=== PATIENT | female | born 1940 | race Caucasian/White ===

== ENCOUNTER 2017-08-23 16:35 | Inpatient (IN) | payer MEDICARE, BC ==
[2017-08-23] MEDS ORDERED: Morphine 10 MG/ML Syringe IM ONE (17:59)
[2017-08-23] MEDS ORDERED: Morphine 10 MG/ML SDV ONE (18:05)
[2017-08-23] MEDS ORDERED: methylPREDNISolone Sodium Succinate 125 MG/2 ML SDV IVPUSH ONE (18:34)
[2017-08-23] MEDS ORDERED: methylPREDNISolone Sodium Succinate 125 MG/2 ML SDV ONE (18:51)
[2017-08-23] MEDS ORDERED: Ketorolac 30 MG/ML SDV IVPUSH ONE (19:17)
[2017-08-23] MEDS ORDERED: Ketorolac 30 MG/ML SDV ONE (19:26)
[2017-08-23] MEDS ORDERED: HYDROmorphone 2 MG/ML Syringe IVPUSH PRN (21:49)
[2017-08-23] MEDS ORDERED: Sodium Chloride 0.9% 100 ML IV SCH (22:00)
--- NOTE | 2017-08-24 01:30 | ER ---
HPI: A 77-year-old female who comes in with family members with complaints of bilateral hip pain that wraps around the back of her pelvic area. She states that her sacroiliac area is painful and the pain is extreme. She rates her pain at 9/10 when she first got here. She also complains of some hand pain bilaterally and both lower legs and feet are painful. The patient states that this all started this afternoon. She has had some chronic aches and pains, but this is something different. She has not had any falls or injuries. The patient has not taken any pain medications. PAST MEDICAL HISTORY: Includes atrial fibrillation diagnosed one month ago. She is on Coumadin for this. The patient has been scheduled to see a yield improvement engineer multiple times, but the appointment had to be canceled for one reason or another. She has history of a PE, history of stage III renal disease, was thought to be med related. OBJECTIVE: GENERAL APPEARANCE: The patient is awake. She is in obvious discomfort, moaning and groaning from pain. VITAL SIGNS: Reviewed. Initial blood pressure 108/63, temp of 100, pulse 90, O2 sats are 95% on room air. Physical exam, lungs are clear. CARDIAC: Heart sounds distinct. I do not notice any murmur. She does have an irregular heart rate that is consistent with atrial fibrillation. ABDOMEN: Soft, protuberant, nontender to palpation. The patient has definite tenderness with guarding with palpation of the right lateral hip and to a lesser degree the left lateral side of the hip radiating around the posterior aspect of the pelvis. The skin is intact without any redness or discoloration. The patient also has I would say mild pain with palpation of the dorsal aspect of both hands. The hands are normal in appearance with full and unguarded flexion and extension capability. Examining the patient's lower legs reveals 2+ edema bilaterally. Both lower legs and feet are tender with palpation. She tells me this is not new. LABORATORY DATA: Labs today include a CBC showing a white count of 12.9. PT/INR obtained. The INR is 2.7. D-dimer is 219. Comprehensive metabolic panel shows a BUN of 47, GFR is 37, creatinine 1.3. C-reactive protein is elevated at 8.5 and sedimentation rate is also elevated at 40. INITIAL TREATMENT PLAN: The patient was given 5 mg of morphine IM. This did not seem to change her pain at all. We then started an IV and after the labs were reviewed, I gave her Solu-Medrol 125 mg IV. This took the edge off her pain, but she still stated that she was having a lot of pain rating her pain at 7/10. I then gave Toradol 30 mg IV. We monitored the patient for another 30 minutes or so and her pain continued to slowly improve. She still was moaning and groaning and stating that with any movement, her pain is severe. At this point, a CT of the pelvis which involved both hips was obtained. The radiologist report shows significant osteoarthritis of the right hip moderate to severe on the right and mild on the left. Multiple degenerative changes involving the lower lumbar spine. No acute fractures or soft tissue mass. DIAGNOSIS: Pelvic pain, acute in onset. TREATMENT PLAN: At this point, the patient's pain is mild. She states that she does not feel she can go home. She would have a hard time getting out of bed. She has been spending most of her last month in a recliner chair since she has been diagnosed with atrial fibrillation. We will admit the patient for observation and pain control overnight and differential diagnosis includes polymyalgia rheumatica. The patient will be re-evaluated in the morning. CALDERON/MODL /[id number]
--- NOTE | 2017-08-24 02:15 | ADMIT ---
HPI: She is being admitted for acute pelvic pain for pain control and weakness, partially due to recently declining health and morbid obesity. The patient was admitted through the emergency room where I initially evaluated her. Lab work showed an elevated sedimentation rate and the CRP. The other lab results were mostly unremarkable. TREATMENT AND PLAN: The patient was given morphine 5 mg IM initially in the ER. She was given Solu-Medrol 125 mg IV and lastly Toradol 30 mg IV. After monitoring her for a while, her pain did significantly decrease to the point where she was comfortable. The patient does not feel she can even attempt to get up to a standing position. She has been using a walker at home, but does not feel she is capable of any independent activity at this time. The differential diagnosis does include polymyalgia rheumatica. CT of the patient's pelvic area did show moderate to severe osteoarthritis on the right and mild on the left, multiple degenerative disk disease in the lower lumbar spine, negative for fracture or acute bony abnormality. The patient's family is concerned about her being able to even come back home. They feel that an evaluation is needed to see if she needs to go to some form of assisted living environment. This has already been initially discussed between family members. I will put in orders for some IV fluids and pain control measures and will repeat some of the basic labs in the morning. CALDERON/MODJustino /[id number]
[2017-08-24] MEDS ORDERED: Non-Formulary Medication 1 Each (Levothyroxine [Levothyroxine] 175 MCG) PO SCH (07:00)
[2017-08-24] MEDS ORDERED: HYDROmorphone 2 MG/ML SDV IVPUSH PRN ×2 (07:55→10:55)
[2017-08-24] MEDS ORDERED: WARFARIN SODIUM 2 MG PO SCH ×2 (08:00→18:00)
[2017-08-24] MEDS ORDERED: SPIRONOLACTONE 12.5 MG PO SCH (08:00)
[2017-08-24] MEDS ORDERED: Non-Formulary Medication 1 Each (Spironolactone [Aldactone] 25 MG) PO SCH (08:00)
[2017-08-24] MEDS ORDERED: Non-Formulary Medication 1 Each (Furosemide [Furosemide] 20 MG) PO SCH ×2 (08:00→14:00)
[2017-08-24] MEDS ORDERED: Non-Formulary Medication 1 Each (Furosemide [Furosemide] 40 MG) PO SCH (08:00)
[2017-08-24] MEDS ORDERED: Non-Formulary Medication 1 Each (Potassium Chloride [Klor-Con 10] 10 MEQ) PO SCH ×2 (08:00)
[2017-08-24] MEDS ORDERED: Non-Formulary Medication 1 Each (Lisinopril [Lisinopril] 5 MG) PO SCH (08:00)
[2017-08-24] MEDS ORDERED: WARFARIN SODIUM 3 MG PO SCH (08:00)
[2017-08-24] MEDS ORDERED: Non-Formulary Medication 1 Each (Diltiazem Hcl [Dilt-Xr] 120 MG) PO SCH ×2 (08:00)
--- NOTE | 2017-08-24 08:34 | CT ---
DATE OF SERVICE: 08/23/17 CLINICAL DATA: Acute pelvic pain. No injury. PELVIC CT: Multislice acquisition without IV contrast was performed. No acute fracture or dislocation. No focal lytic or blastic bone lesions. There are severe osteoarthritic changes of the right hip joint. There are moderate osteoarthritic changes of the left hip joint. There is degenerative disc disease at multiple levels in the lower lumbar spine. There are degenerative changes involving the SI joints and symphysis pubis. The bladder is partially fluid-filled and appears normal. There is a calcified nodule within the uterus consistent with a calcified uterine leiomyoma. No other significant findings. [id number] [facility]
--- NOTE | 2017-08-24 16:55 | DISCH ---
This 77-year-old lady was admitted through the emergency room last night with pelvic pain, bilateral hip pain, and some pain radiating down towards both feet. She also had initially some complaints of bilateral hand pain. Lab workup revealed both an elevated sedimentation rate and CRP. Other test results were basically normal. My initial working diagnosis was polymyalgia rheumatica. The patient was given Solu-Medrol followed by Toradol. She also received morphine initially 5 mg IM. This combination of medication produced good pain relief after about 2 hours at a time passed while monitoring the patient. She slept well during the night. She has been doing much better today. Her pain is between 0 and 1. The patient's appetite has been good. She is teary today. Therefore, I do feel that the polymyalgia rheumatica is the correct diagnosis. At this point, we will discharge the patient. I will start her on prednisone 40 mg a day for 5 days. I do want the patient to follow up with her primary care provider, which she tells me is Dr. Heard. I want her to be seen by early next week for recheck. We also had some discussion involving PT and OT. Physical therapist did evaluate the patient and stated that she was doing very well from both the PT and OT standpoint. CALDERON/MODL /[id number]
[2017-08-24] MEDS ORDERED: CRESTOR 10MG TABLET PO SCH (20:00)
--- NOTE | 2017-08-24 21:40 | HP ---
Admitted for pelvic and hip pain that she came into the emergency room for last evening. The patient's pain was controlled in the emergency room after given 5 mg of morphine IM followed by Solu-Medrol 125 mg IV and Toradol 30 mg IV. Lab workup revealed an elevated sed rate and CRP. The remaining labs were unremarkable. Initial thoughts are polymyalgia rheumatica. PAST MEDICAL HISTORY: 1. Atrial fibrillation, fairly recently diagnosed. 2. History of pulmonary embolism. 3. History of stage III renal disease. 4. Obesity. 5. Hypothyroidism. 6. 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 CURRENT MEDICATIONS: Please refer to the appropriate section of [place]. OBJECTIVE: GENERAL APPEARANCE: Seeing the patient on the morning of August 24, 2017, reveals that she is feeling much better. Her pain is minimal. She rates it at 0 to 1. The patient is very talkative today. She states that she slept well during the night once her pain became controlled. VITAL SIGNS: Reviewed. LUNGS: Clear. CARDIAC: Heart sounds distinct without murmurs. ABDOMEN: Soft and nontender to palpation. Bowel sounds are present. EXTREMITIES: The patient is no longer having any pain involving the left or right hip area or radiating around to the posterior pelvic girdle. ASSESSMENT AND PLAN: PT has evaluated the patient and states she is doing well. She is able to walk 30 feet. Her appetite is good today. At this point, she will be discharged home. I will put her on prednisone for a few days and I do want the patient to follow up with her primary care provider next week, which she tells me is Dr. Heard. CRS/MODL
[2017-08-25] MEDS ORDERED: WARFARIN SODIUM 3 MG PO SCH (18:00)
== END 2017-08-24 12:30 | disposition home or self-care (01) | DRG 546 ==
LOC: LB.ED 16:35 → LB.MS 21:45 → OBSVTOIN 21:46
PROVIDERS: ADMIT Physician Assistant; ATTEND Physician Assistant
DX: M35.3 Polymyalgia rheumatica (principal); Z68.43 Body mass index [BMI] 50.0-59.9, adult; G89.29 Other chronic pain; I48.91 Unspecified atrial fibrillation; Z79.01 Long term (current) use of anticoagulants; M25.552 Pain in left hip; M25.551 Pain in right hip; M79.642 Pain in left hand; M79.641 Pain in right hand; M79.605 Pain in left leg; R10.2 Pelvic and perineal pain; M79.604 Pain in right leg; M79.672 Pain in left foot; M79.671 Pain in right foot; N28.9 Disorder of kidney and ureter, unspecified; Z86.711 Personal history of pulmonary embolism; M47.816 Spondylosis without myelopathy or radiculopathy, lumbar region; E66.01 Morbid (severe) obesity due to excess calories; R53.1 Weakness; E03.9 Hypothyroidism, unspecified; M15.9 Polyosteoarthritis, unspecified; Z96.653 Presence of artificial knee joint, bilateral; Z96.619 Presence of unspecified artificial shoulder joint
CPT/HCPCS: 36415; 72192; 80053; 85025; 85379; 85610; 85651; 86140; 93005; A0425; A0429; J1885; J2270; J2930; 83735; 96372; 96374; 96375; 97161-GP; 99284-25; A9270-GY; J7030

== ENCOUNTER → 2019-01-22 | Outpatient (CLI) | payer MEDICARE, OTHER | LOC: LB.LAB 12:48 | PROVIDERS: ATTEND Family Medicine | DX: I48.20 Chronic atrial fibrillation, unspecified (principal) | CPT/HCPCS: 85610 ==

== ENCOUNTER 2020-08-25 08:36 | Emergency (ER) | payer MEDICARE, OTHER ==
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
== END 2020-08-25 09:50 | disposition home or self-care (01) ==
LOC: LB.ED 08:36
DX: R04.0 Epistaxis (principal); I48.91 Unspecified atrial fibrillation; M19.90 Unspecified osteoarthritis, unspecified site; E66.9 Obesity, unspecified; Z86.711 Personal history of pulmonary embolism; Z79.01 Long term (current) use of anticoagulants; Z79.899 Other long term (current) drug therapy
CPT/HCPCS: 30903; 99283-25

== ENCOUNTER 2021-01-12 10:14 | Observation (INO) | payer MEDICARE, OTHER ==
[2021-01-12] MEDS ORDERED: Sodium Chloride 0.9% 10 ML Syringe FLUSH PRN (10:50)
[2021-01-12] MEDS ORDERED: Diltiazem 25 MG/5 ML SDV IVPUSH ONE (10:50)
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
[2021-01-12] MEDS ORDERED: LORazepam 2 MG/ML SDV IV PRN (14:46)
[2021-01-12] MEDS: Acetaminophen 325 MG Tab PO PRN (17:02)
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
[2021-01-13] MEDS: Acetaminophen 650 MG Tab.ER PO PRN ×2 (04:15→18:21)
[2021-01-13] MEDS: Furosemide 20 MG Tab PO SCH (07:48)
[2021-01-13] MEDS: Spironolactone 25 MG Tab PO SCH (07:48)
[2021-01-13] MEDS: Diltiazem 120 MG Cap.CD PO SCH (07:48)
[2021-01-13] MEDS: Potassium Chloride 10 MEQ Tab.ER PO SCH (07:48)
[2021-01-13] MEDS: Lisinopril 5 MG Tab PO SCH (07:48)
[2021-01-13] MEDS ORDERED: DILTIAZEM HCL 120 MG PO SCH (08:00)
[2021-01-13] MEDS ORDERED: Non-Formulary Medication 1 Each (Rosuvastatin [Crestor] 10 MG Tablet) PO SCH (08:00)
[2021-01-13] MEDS ORDERED: Rosuvastatin 20 MG Tab PO SCH ×2 (08:00→20:00)
[2021-01-13] MEDS ORDERED: Phytonadione 10 MG in Sodium Chloride 0.9% 50 ML IV SCH (11:21)
[2021-01-13] MEDS: Cephalexin 500 MG Cap PO SCH ×2 (17:02→23:24)
[2021-01-13] MEDS ORDERED: Menthol/Methyl Salicylate 85 GM Tube TOP PRN (19:46)
[2021-01-14] MEDS: Acetaminophen 325 MG Tab PO PRN (01:59)
[2021-01-14] MEDS: Cephalexin 500 MG Cap PO SCH ×2 (05:11→12:23)
[2021-01-14] MEDS: Spironolactone 25 MG Tab PO SCH (07:33)
[2021-01-14] MEDS: Furosemide 20 MG Tab PO SCH (07:33)
[2021-01-14] MEDS: Potassium Chloride 10 MEQ Tab.ER PO SCH ×2 (07:35→08:42)
[2021-01-14] MEDS: Lisinopril 5 MG Tab PO SCH (08:42)
[2021-01-14] MEDS: Diltiazem 120 MG Cap.CD PO SCH (08:42)
--- NOTE | 2021-01-14 15:06 | PCM.DCSUM1 ---
Discharge Summary - Hospital Course HPI Initial Comments: This patient was admitted inpatient unit on observation status for anemia. She presented to the ER with a complaint of weakness and was found to have a hemoglobin less than 7. She also had an elevated INR. She was transfused with 4 units of packed cells which brought her hemoglobin up to a 7.6. Just prior to remove discharge she did have one very dark stool prior and it is likely she has a GI bleed. She states she has never had a colonoscopy. Diagnosis: Stroke: No Modified [place] Scale: Mod.Sev.Disability ;Unable to Walk/Attend Bodily Needs W/O Assistance Modified [place] Scale Score: 4 - Discharge Data Discharge Date: 01/14/21 Discharge Disposition: Home, Self-Care 01 Condition: Good - Referral to Home Health Primary Care Physician: Masha Heard MD - Discharge Diagnosis/Problem(s) (1) Acute kidney failure SNOMED Code(s): 31520372 ICD Code: N17.9 - ACUTE KIDNEY FAILURE, UNSPECIFIED Status: Acute (2) Anemia SNOMED Code(s): 077978377 ICD Code: D64.9 - ANEMIA, UNSPECIFIED Status: Acute (3) Elevated international normalized ratio (INR) SNOMED Code(s): 510728785 ICD Code: R79.1 - ABNORMAL COAGULATION PROFILE Status: Acute - Discharge Plan Prescriptions/Med Rec: Apixaban [Eliquis] 2.5 mg PO BID 30 Days #60 tablet cephALEXin [Keflex] 500 mg PO TID 6 Days #18 cap Clotrimazole [Lotrimin AF 1% Crm] 30 gm TOP BID 5 Days #30 gm Home Medications: Home Meds Furosemide 20 mg PO DAILY 08/23/17 [History] Levothyroxine 175 mcg PO ACBRK 08/23/17 [History] Lisinopril 5 mg PO DAILY 08/23/17 [History] Potassium Chloride [Klor-Con 10] 10 meq PO DAILY 08/23/17 [History] Rosuvastatin [Crestor] 10 mg PO DAILY 08/23/17 [History] Spironolactone [Aldactone] 25 mg PO DAILY 08/23/17 [History] Warfarin Sodium [Jantoven] 2 mg PO DAILY 08/23/17 [History] Warfarin Sodium [Jantoven] 3 mg PO DAILY 08/23/17 [History] dilTIAZem HCL [Dilt-XR] 120 mg PO DAILY 08/23/17 [History] Acetaminophen [Tylenol Arthritis] 650 mg PO Q8HR PRN 01/12/21 [History] Apixaban [Eliquis] 2.5 mg PO BID 30 Days #60 tablet 01/14/21 [Rx] Clotrimazole [Lotrimin AF 1% Crm] 30 gm TOP BID 5 Days #30 gm 01/14/21 [Rx] cephALEXin [Keflex] 500 mg PO TID 6 Days #18 cap 01/14/21 [Rx] Patient Handouts: Colonoscopy, Adult, [id number], Anemia Forms: ED Department Discharge Referrals: Masha Heard MD [Primary Care Provider] - - Discharge Summary/Plan Comment DC Time >30 min.: No Total # of Minutes for Discharge Time: 29 - General Info Date of Service: 01/14/21 Admission Dx/Problem (Free Text: Admission Diagnosis/Problem Admission Diagnosis/Problem Anemia Subjective Update: Patient alert, color improved. Vital signs stable, appetite fair and drinking fluids. Denies pain. Has no vomiting or diarrhea. Functional Status: Reports: Pain Controlled, Tolerating Diet, Ambulating, Urinating - Review of Systems General: Reports: No Symptoms HEENT: Reports: No Symptoms Pulmonary: Reports: No Symptoms Cardiovascular: Reports: No Symptoms Gastrointestinal: Reports: No Symptoms Genitourinary: Reports: No Symptoms Musculoskeletal: Reports: No Symptoms Skin: Reports: No Symptoms Neurological: Reports: No Symptoms - Patient Data Vitals - Most Recent: Last Vital Signs Temp 36.8 C 01/14/21 11:56 Pulse 99 01/14/21 11:56 Resp 18 01/14/21 11:56 BP 127/56 L 01/14/21 11:56 Pulse Ox 93 L 01/14/21 11:57 Weight - Most Recent: 63.957 kg I&O - Last 24 hours: Intake & Output 01/14/21 01/14/21 01/14/21 06:59 14:59 22:59 Intake Total 390 Balance 390 Lab Results - Last 24 hrs: Laboratory Results - last 24 hr 01/12/21 01/13/21 Range/Units 11:50 13:44 Hgb 7.3 L (11.5-16.5) g/dL Blood Type A POSITIVE Gel Antibody Screen Negative Crossmatch See Detail DILCIA Results - Last 24 hrs: Microbiology 01/12/21 10:38 Urine Culture - Final Urine, Catheterized Escherichia Coli 01/12/21 15:55 MRSA Surveillance Culture - Final Nares, Unspecified NO MRSA ISOLATED Med Orders - Current: Current Medications Acetaminophen (Acetaminophen 325 Mg Tab) 650 mg PO Q4H PRN PRN Reason: Pain (Mild 1-3)/fever Last Admin: 01/14/21 01:59 Dose: 650 mg Documented by: Acetaminophen (Acetaminophen 650 Mg Tab.Er) 650 mg PO Q8HR PRN PRN Reason: arthritis pain Last Admin: 01/13/21 18:21 Dose: 650 mg Documented by: Cephalexin (Cephalexin 500 Mg Cap) 500 mg PO Q6HR [facility] Stop: 01/18/21 23:59 Last Admin: 01/14/21 12:23 Dose: 500 mg Documented by: Diltiazem HCl (Diltiazem 120 Mg Cap.Cd) 120 mg PO DAILY [facility] Last Admin: 01/14/21 08:42 Dose: 120 mg Documented by: Furosemide (Furosemide 20 Mg Tab) 20 mg PO DAILY [facility] Last Admin: 01/14/21 07:33 Dose: 20 mg Documented by: Levothyroxine Sodium (Levothyroxine 175 Mcg Tab) 175 mcg PO DAILY@0700 [facility] Last Admin: 01/14/21 07:35 Dose: 175 mcg Documented by: Lisinopril (Lisinopril 5 Mg Tab) 5 mg PO DAILY [facility] Last Admin: 01/14/21 08:42 Dose: 5 mg Documented by: Lorazepam (Lorazepam 2 Mg/Ml Sdv) 1 mg IV BEDTIME PRN PRN Reason: Nausea/Vomiting Last Admin: 01/12/21 23:15 Dose: 1 mg Documented by: Methyl Salicylate (Menthol/Methyl Salicylate 85 Gm Tube) 0 gm TOP Q6H PRN PRN Reason: Pain (mild 1-3) Last Admin: 01/13/21 20:14 Dose: 1 applic Documented by: Potassium Chloride (Potassium Chloride 10 Meq Tab.Er) 10 meq PO DAILY [facility] Last Admin: 01/14/21 08:42 Dose: Not Given Documented by: Rosuvastatin Calcium (Rosuvastatin 20 Mg Tab) 10 mg PO BEDTIME [facility] Last Admin: 01/13/21 19:34 Dose: 10 mg Documented by: Sodium Chloride (Sodium Chloride 0.9% 10 Ml Syringe) 10 ml FLUSH ASDIRECTED PRN PRN Reason: Keep Vein Open Spironolactone (Spironolactone 25 Mg Tab) 25 mg PO DAILY [facility] Last Admin: 01/14/21 07:33 Dose: 25 mg Documented by: Discontinued Medications Diltiazem HCl (Diltiazem 25 Mg/5 Ml Sdv) 25 mg IVPUSH NOW ONE Stop: 01/12/21 10:51 Last Admin: 01/12/21 10:55 Dose: 25 mg Documented by: Phytonadione 10 mg/ Sodium (Chloride) 51 mls @ 100 mls/hr IV ASDIRECTED [facility] Stop: 01/13/21 13:00 Last Admin: 01/13/21 12:08 Dose: 100 mls/hr Documented by: Rosuvastatin Calcium (Rosuvastatin 20 Mg Tab) 10 mg PO DAILY [facility] Last Admin: 01/13/21 07:49 Dose: Not Given Documented by: - Exam General: Reports: Alert, Oriented, Cooperative, No Acute Distress HEENT: Reports: Pupils Equal, Pupils Reactive, EOMI, Mucous Membr. Moist/[place] Neck: Reports: Supple Lungs: Reports: Clear to Auscultation, Normal Respiratory Effort Cardiovascular: Reports: Regular Rhythm Skin: Reports: Warm, Dry, Intact Neurological: Reports: No New Focal Deficit Psy/Mental Status: Reports: Alert, Normal Affect, Normal Mood
== END 2021-01-14 17:01 | disposition home or self-care (01) ==
LOC: LB.ED 10:14 → LB.MS 14:31
PROVIDERS: ADMIT Nurse Practitioner; ATTEND Nurse Practitioner
DX: D64.9 Anemia, unspecified (principal); I48.91 Unspecified atrial fibrillation; E66.9 Obesity, unspecified; N17.9 Acute kidney failure, unspecified; Z79.899 Other long term (current) drug therapy; Z79.01 Long term (current) use of anticoagulants; Z98.890 Other specified postprocedural states
CPT/HCPCS: 36415; 36430; 80048; 81001; 85018; 85025; 85610; 86850; 86900; 86901; 86920; 86922; 87086; 87088; 87186; 93005; 96374; 99285; A9270; J2060; J3430; J3490; P9016; U0002; 96365; 96375; 99217; 99220; G0378

== ENCOUNTER 2022-01-10 10:50 | Observation (INO) | payer MEDICARE, OTHER ==
[~2022-01-10 10:50] MED LIST: Sodium Chloride 0.9% 10 ML Syringe FLUSH PRN
[2022-01-10 11:36] LABS: ESTIMATED GFR 33 mL/min (>60); TROPONIN I HIGH SENSITIVITY 13.3 pg/ml (<=60.4)
[2022-01-10] MEDS: Albuterol/Ipratropium 3.0-0.5 MG/3 ML Neb Soln NEB PRN ×2 (11:50→12:05)
[2022-01-10] MEDS ORDERED: Albuterol/Ipratropium 3.0-0.5 MG/3 ML Neb Soln ONE ×2 (11:55→12:19)
[2022-01-10] MEDS ORDERED: Budesonide 0.5 MG/2 ML Neb Susp NEB ONE (12:18)
[2022-01-10] MEDS ORDERED: Budesonide 0.5 MG/2 ML Neb Susp ONE (12:19)
[2022-01-10] MEDS ORDERED: Azithromycin 500 MG Tab PO ONE (13:04)
[2022-01-10] MEDS ORDERED: Magnesium Sulfate/D5W 1 GM/100 ML Premix Bag IV ONE (13:18)
[2022-01-10] MEDS: Budesonide 0.5 MG/2 ML Neb Susp NEB SCH ×2 (15:13→19:36)
[2022-01-10] MEDS: guaiFENesin 600 MG Tab.ER PO SCH ×2 (15:13→19:36)
[2022-01-10] MEDS: Albuterol/Ipratropium 3.0-0.5 MG/3 ML Neb Soln NEB SCH ×2 (18:17→20:23)
[2022-01-10] MEDS: APIXABAN 2.5 MG PO SCH (19:36)
[2022-01-10] MEDS: ROSUVASTATIN 10 MG PO SCH (19:36)
[2022-01-10] MEDS: Acetaminophen 500 MG Tab PO PRN (21:37)
[2022-01-10] MEDS: guaiFENesin/Dextromethorphan 100-10 MG/5 ML Soln 10 ML Cup PO PRN (21:38)
[2022-01-11] MEDS: Albuterol/Ipratropium 3.0-0.5 MG/3 ML Neb Soln NEB SCH ×6 (01:17→20:28)
[2022-01-11] MEDS: Acetaminophen 500 MG Tab PO PRN ×2 (05:44→20:28)
[2022-01-11] MEDS: guaiFENesin/Dextromethorphan 100-10 MG/5 ML Soln 10 ML Cup PO PRN ×2 (05:47→20:28)
[2022-01-11] MEDS: Azithromycin 250 MG Tab PO SCH (07:06)
[2022-01-11] MEDS: guaiFENesin 600 MG Tab.ER PO SCH ×2 (07:06→19:18)
[2022-01-11] MEDS: FUROSEMIDE 40MG TABLET PO SCH (07:07)
[2022-01-11] MEDS: APIXABAN 2.5 MG PO SCH ×2 (07:07→19:18)
[2022-01-11] MEDS: Budesonide 0.5 MG/2 ML Neb Susp NEB SCH ×2 (07:07→19:18)
[2022-01-11] MEDS: LEVOTHYROXINE 200 MCG PO SCH (07:07)
[2022-01-11] MEDS: SPIRONOLACTONE 25MG TABLET PO SCH (07:08)
[2022-01-11] MEDS: METOPROLOL SUCCINATE 100 MG PO SCH (07:08)
[2022-01-11] MEDS: PANTOPRAZOLE 20 MG PO SCH (07:08)
[2022-01-11] MEDS: VITAMIN D3 125 MCG PO SCH (07:09)
[2022-01-11] MEDS ORDERED: Acetaminophen 500 MG Tab PO ONE (09:19)
[2022-01-11] MEDS: ROSUVASTATIN 10 MG PO SCH (19:18)
[2022-01-12] MEDS: Albuterol/Ipratropium 3.0-0.5 MG/3 ML Neb Soln NEB SCH ×6 (01:32→21:14)
[2022-01-12] MEDS: SPIRONOLACTONE 25MG TABLET PO SCH (07:01)
[2022-01-12] MEDS: PANTOPRAZOLE 20 MG PO SCH (07:01)
[2022-01-12] MEDS: LEVOTHYROXINE 200 MCG PO SCH (07:01)
[2022-01-12] MEDS: Budesonide 0.5 MG/2 ML Neb Susp NEB SCH ×2 (07:01→21:13)
[2022-01-12] MEDS: VITAMIN D3 125 MCG PO SCH (07:02)
[2022-01-12] MEDS: guaiFENesin 600 MG Tab.ER PO SCH ×2 (07:02→21:13)
[2022-01-12] MEDS: FUROSEMIDE 40MG TABLET PO SCH (07:02)
[2022-01-12] MEDS: APIXABAN 2.5 MG PO SCH ×2 (07:02→21:13)
[2022-01-12] MEDS: METOPROLOL SUCCINATE 100 MG PO SCH (07:02)
[2022-01-12] MEDS: Azithromycin 250 MG Tab PO SCH (07:02)
[2022-01-12] MEDS ORDERED: Furosemide 40 MG Tab PO ONE (11:00)
[2022-01-12] MEDS: predniSONE 20 MG Tab PO SCH (13:29)
[2022-01-12] MEDS: Acetaminophen 500 MG Tab PO PRN (14:13)
[2022-01-12] MEDS: ROSUVASTATIN 10 MG PO SCH (21:13)
[2022-01-13] MEDS: Albuterol/Ipratropium 3.0-0.5 MG/3 ML Neb Soln NEB SCH ×6 (02:03→20:39)
[2022-01-13] MEDS: Budesonide 0.5 MG/2 ML Neb Susp NEB SCH ×2 (07:08→20:39)
[2022-01-13] MEDS: Azithromycin 250 MG Tab PO SCH (07:11)
[2022-01-13] MEDS: guaiFENesin 600 MG Tab.ER PO SCH ×2 (07:11→20:39)
[2022-01-13] MEDS ORDERED: predniSONE 20 MG Tab ONE (07:11)
[2022-01-13] MEDS: predniSONE 20 MG Tab PO SCH (07:11)
[2022-01-13] MEDS: LEVOTHYROXINE 200 MCG PO SCH (07:11)
[2022-01-13] MEDS: METOPROLOL SUCCINATE 100 MG PO SCH (07:12)
[2022-01-13] MEDS: APIXABAN 2.5 MG PO SCH ×2 (07:12→20:39)
[2022-01-13] MEDS: SPIRONOLACTONE 25MG TABLET PO SCH (07:12)
[2022-01-13] MEDS: FUROSEMIDE 40MG TABLET PO SCH (07:12)
[2022-01-13] MEDS: VITAMIN D3 125 MCG PO SCH (07:12)
[2022-01-13] MEDS: PANTOPRAZOLE 20 MG PO SCH (07:12)
[2022-01-13] MEDS: guaiFENesin/Dextromethorphan 100-10 MG/5 ML Soln 10 ML Cup PO PRN (09:40)
[2022-01-13] MEDS: Furosemide 40 MG Tab PO SCH (12:27)
[2022-01-13] MEDS: ROSUVASTATIN 10 MG PO SCH (20:39)
[2022-01-13] MEDS: Acetaminophen 500 MG Tab PO PRN (23:30)
[2022-01-14] MEDS: Albuterol/Ipratropium 3.0-0.5 MG/3 ML Neb Soln NEB SCH ×4 (01:00→12:55)
[2022-01-14] MEDS: LEVOTHYROXINE 200 MCG PO SCH (07:16)
[2022-01-14] MEDS: predniSONE 20 MG Tab PO SCH (07:16)
[2022-01-14] MEDS ORDERED: predniSONE 20 MG Tab ONE (07:20)
[2022-01-14] MEDS: Budesonide 0.5 MG/2 ML Neb Susp NEB SCH (07:23)
[2022-01-14] MEDS: Azithromycin 250 MG Tab PO SCH (08:22)
[2022-01-14] MEDS: guaiFENesin 600 MG Tab.ER PO SCH (08:22)
[2022-01-14] MEDS: SPIRONOLACTONE 25MG TABLET PO SCH (08:23)
[2022-01-14] MEDS: APIXABAN 2.5 MG PO SCH (08:23)
[2022-01-14] MEDS: FUROSEMIDE 40MG TABLET PO SCH (08:23)
[2022-01-14] MEDS: METOPROLOL SUCCINATE 100 MG PO SCH (08:23)
[2022-01-14] MEDS: VITAMIN D3 125 MCG PO SCH (08:24)
[2022-01-14] MEDS: PANTOPRAZOLE 20 MG PO SCH (08:24)
[2022-01-14] MEDS: Furosemide 40 MG Tab PO SCH (11:47)
== END 2022-01-14 14:00 | disposition home or self-care (01) ==
LOC: LB.ED 10:50 → LB.MS 13:02
PROVIDERS: ADMIT Surgery; ATTEND Surgery
DX: J44.1 Chronic obstructive pulmonary disease with (acute) exacerbation (principal); R09.02 Hypoxemia; I12.9 Hypertensive chronic kidney disease with stage 1 through stage 4 chronic kidney disease, or unspecified chronic kidney disease; N18.9 Chronic kidney disease, unspecified; E66.9 Obesity, unspecified; G43.909 Migraine, unspecified, not intractable, without status migrainosus; I48.91 Unspecified atrial fibrillation; M19.90 Unspecified osteoarthritis, unspecified site; D63.1 Anemia in chronic kidney disease; Z20.822 Contact with and (suspected) exposure to COVID-19; Z99.81 Dependence on supplemental oxygen; Z88.6 Allergy status to analgesic agent; Z79.899 Other long term (current) drug therapy; Z79.890 Hormone replacement therapy; Z96.653 Presence of artificial knee joint, bilateral; Z98.890 Other specified postprocedural states; Z87.891 Personal history of nicotine dependence
CPT/HCPCS: 36415; 71045; 71250; 80048; 80053; 83880; 84484; 85025; 85027; 87804; 87804-59; 93005; 96365; 99285; A0425; A0429; A9270-GY; G0378; J3475; J7512; J7620; U0002

== ENCOUNTER 2022-09-15 14:10 | Inpatient (IN) | payer MEDICARE, OTHER ==
[2022-09-15] MEDS ORDERED: Sodium Chloride 0.9% 500 ML IV ONE (14:42)
[2022-09-15 15:04] LABS: BASOPHILS ABSOLUTE AUTO 0.03 K/uL (0.02-0.10); BASOPHILS PERCENT AUTO 0.5 % (0.0-0.5); EOSINOPHILS ABSOLUTE AUTO 0.05 K/uL (0.04-0.40); EOSINOPHILS PERCENT AUTO 0.9 % (1.0-5.0); HEMATOCRIT 38.5 % (37.0-47.0); HEMOGLOBIN 12.3 g/dL (11.5-16.5); LYMPHOCYTES ABSOLUTE AUTO 0.41 K/uL (1.50-4.00); LYMPHOCYTES PERCENT AUTO 7.1 % (20.0-40.0); MEAN CORPUSCULAR HEMOGLOBIN 32.9 pg (27.0-32.0); MEAN CORPUSCULAR HGB CONC 31.9 g/dL (31.0-35.0); MEAN CORPUSCULAR VOLUME 103 fL (76-96); MEAN PLATELET VOLUME 10.4 fL (6.0-10.0); MONOCYTES ABSOLUTE AUTO 0.76 K/uL (0.20-0.80); MONOCYTES PERCENT AUTO 13.1 % (3.0-10.0); NEUTROPHILS ABSOLUTE AUTO 4.54 K/uL (2.00-7.50); NEUTROPHILS PERCENT AUTO 78.4 % (45.0-70.0); PLATELET COUNT,PLT 119 K/uL (150-500); RED BLOOD CELL COUNT 3.74 M/uL (3.80-5.80); RED CELL DISTRIBUTION WIDTH 14.1 % (11.0-16.0); WHITE BLOOD CELL COUNT,WBC 5.8 K/uL (4.0-11.0)
[2022-09-15 15:21] LABS: A/G RATIO 1.1 (0.8-2.0); ALBUMIN 3.9 g/dL (3.4-5.0); ANION GAP 6.3 mmol/L (5.0-15.0); BILIRUBIN TOTAL 1.1 mg/dL (0.0-1.0); BUN/CREATININE RATIO 36.3 (6-25); CALCIUM 9.7 mg/dL (8.5-10.1); CARBON DIOXIDE,CO2 40.4 mmol/L (21.0-32.0); CREATININE 1.13 mg/dL (0.55-1.02); EST CRCL DRUG DOSING (CG) 29.83 mL/min; POTASSIUM,K 4.7 mmol/L (3.5-5.1); PROTEIN TOTAL,TP 7.6 g/dL (6.4-8.2)
[2022-09-15 15:29] LABS: TROPONIN I HIGH SENSITIVITY 13.8 pg/ml (<=60.4)
[2022-09-15] MEDS ORDERED: Polyethylene Glycol 3350 Powder 17 GM Packet PO PRN (16:27)
[2022-09-15] MEDS ORDERED: Enoxaparin 40 MG/0.4 ML Syringe SUBCUT SCH (16:30)
[2022-09-15 16:58] LABS: APPEARANCE,URINE SLIGHTLY CLOUDY (CLEAR); BILIRUBIN,URINE NEGATIVE (NEGATIVE); COLOR,URINE YELLOW; GLUCOSE,URINE NEGATIVE (NEGATIVE); KETONES,URINE NEGATIVE (NEGATIVE); LEUKOCYTE ESTERASE,URINE TRACE (NEGATIVE); NITRITE,URINE NEGATIVE (NEGATIVE); OCCULT BLOOD,URINE TRACE-INTACT (NEGATIVE); PROTEIN,URINE NEGATIVE (NEGATIVE); UROBILINOGEN,URINE 0.2 E.U./dL (0.2-1.0)
[2022-09-15 17:03] LABS: BACTERIA,URINE MANY /HPF; RBC,URINE 0-5 /HPF; SQUAMOUS EPITHELIAL CELLS,UR FEW /HPF; WBC,URINE 0-5 /HPF
[2022-09-15] MEDS: Bumetanide 2.5 MG/10 ML MDV IVPUSH SCH (17:40)
[2022-09-15] MEDS ORDERED: cefTRIAXone 1 GM Vial IM ONE (20:43)
[2022-09-15] MEDS: Rosuvastatin 20 MG Tab PO SCH (21:00)
[2022-09-15] MEDS: Apixaban 2.5 MG Tab PO SCH ×2 (21:02)
[2022-09-15] MEDS: Acetaminophen 650 MG Tab.ER PO PRN (21:06)
[2022-09-16] MEDS: Bumetanide 2.5 MG/10 ML MDV IVPUSH SCH (05:33)
[2022-09-16] MEDS: Acetaminophen 650 MG Tab.ER PO PRN ×2 (05:36→21:56)
[2022-09-16] MEDS: Levothyroxine 100 MCG Tab PO SCH ×2 (05:39→06:16)
[2022-09-16] MEDS ORDERED: Enoxaparin 40 MG/0.4 ML Syringe SUBCUT SCH (08:00)
[2022-09-16] MEDS ORDERED: Non-Formulary Medication 1 Each (Pantoprazole Sodium [Protonix] 20 MG Tablet.Dr) PO SCH ×2 (08:00)
[2022-09-16 08:26] LABS: A/G RATIO 0.9 (0.8-2.0); ALBUMIN 3.7 g/dL (3.4-5.0); ANION GAP 8.1 mmol/L (5.0-15.0); BILIRUBIN TOTAL 1.1 mg/dL (0.0-1.0); BUN/CREATININE RATIO 32.5 (6-25); CALCIUM 10.2 mg/dL (8.5-10.1); CARBON DIOXIDE,CO2 40.2 mmol/L (21.0-32.0); CREATININE 1.17 mg/dL (0.55-1.02); EST CRCL DRUG DOSING (CG) 26.17 mL/min; POTASSIUM,K 4.3 mmol/L (3.5-5.1); PROTEIN TOTAL,TP 7.7 g/dL (6.4-8.2)
[2022-09-16 08:31] LABS: BASOPHILS ABSOLUTE AUTO 0.04 K/uL (0.02-0.10); BASOPHILS PERCENT AUTO 0.7 % (0.0-0.5); EOSINOPHILS ABSOLUTE AUTO 0.08 K/uL (0.04-0.40); EOSINOPHILS PERCENT AUTO 1.4 % (1.0-5.0); HEMATOCRIT 40.1 % (37.0-47.0); HEMOGLOBIN 12.8 g/dL (11.5-16.5); LYMPHOCYTES ABSOLUTE AUTO 0.55 K/uL (1.50-4.00); LYMPHOCYTES PERCENT AUTO 9.5 % (20.0-40.0); MEAN CORPUSCULAR HGB CONC 31.9 g/dL (31.0-35.0); MEAN CORPUSCULAR VOLUME 103 fL (76-96); MEAN PLATELET VOLUME 10.5 fL (6.0-10.0); MONOCYTES ABSOLUTE AUTO 0.82 K/uL (0.20-0.80); MONOCYTES PERCENT AUTO 14.1 % (3.0-10.0); NEUTROPHILS ABSOLUTE AUTO 4.33 K/uL (2.00-7.50); NEUTROPHILS PERCENT AUTO 74.3 % (45.0-70.0); PLATELET COUNT,PLT 122 K/uL (150-500); RED BLOOD CELL COUNT 3.88 M/uL (3.80-5.80); RED CELL DISTRIBUTION WIDTH 14.2 % (11.0-16.0); WHITE BLOOD CELL COUNT,WBC 5.8 K/uL (4.0-11.0)
[2022-09-16] MEDS: Spironolactone 25 MG Tab PO SCH (09:04)
[2022-09-16] MEDS: Metoprolol Succinate 100 MG Tab.ER PO SCH (09:04)
[2022-09-16] MEDS: Apixaban 2.5 MG Tab PO SCH ×2 (09:06→19:47)
[2022-09-16] MEDS ORDERED: Bumetanide 2.5 MG/10 ML MDV IVPUSH SCH ×2 (17:00)
[2022-09-16] MEDS: Rosuvastatin 20 MG Tab PO SCH (19:47)
[2022-09-16] MEDS: cefTRIAXone 1 GM in Sodium Chloride 0.9% 50 ML IV SCH (21:23)
[2022-09-17] MEDS ORDERED: Haloperidol Lactate 5 MG/ML SDV IVPUSH ONE (00:22)
[2022-09-17] MEDS ORDERED: Bumetanide 2.5 MG/10 ML MDV IVPUSH SCH (06:00)
[2022-09-17] MEDS: Metoprolol Succinate 100 MG Tab.ER PO SCH (08:00)
[2022-09-17] MEDS: Acetaminophen 650 MG Tab.ER PO PRN ×2 (08:00→18:59)
[2022-09-17] MEDS: Levothyroxine 100 MCG Tab PO SCH (08:00)
[2022-09-17] MEDS: Spironolactone 25 MG Tab PO SCH (08:00)
[2022-09-17 08:57] LABS: BASOPHILS ABSOLUTE AUTO 0.05 K/uL (0.02-0.10); BASOPHILS PERCENT AUTO 0.7 % (0.0-0.5); EOSINOPHILS ABSOLUTE AUTO 0.04 K/uL (0.04-0.40); EOSINOPHILS PERCENT AUTO 0.6 % (1.0-5.0); HEMATOCRIT 42.9 % (37.0-47.0); HEMOGLOBIN 13.4 g/dL (11.5-16.5); LYMPHOCYTES ABSOLUTE AUTO 0.44 K/uL (1.50-4.00); LYMPHOCYTES PERCENT AUTO 6.3 % (20.0-40.0); MEAN CORPUSCULAR HEMOGLOBIN 32.2 pg (27.0-32.0); MEAN CORPUSCULAR HGB CONC 31.2 g/dL (31.0-35.0); MEAN CORPUSCULAR VOLUME 103 fL (76-96); MEAN PLATELET VOLUME 10.3 fL (6.0-10.0); MONOCYTES PERCENT AUTO 11.4 % (3.0-10.0); NEUTROPHILS ABSOLUTE AUTO 5.71 K/uL (2.00-7.50); PLATELET COUNT,PLT 124 K/uL (150-500); RED BLOOD CELL COUNT 4.16 M/uL (3.80-5.80); RED CELL DISTRIBUTION WIDTH 14.3 % (11.0-16.0)
[2022-09-17 09:18] LABS: A/G RATIO 0.9 (0.8-2.0); ALBUMIN 3.7 g/dL (3.4-5.0); ANION GAP 9.4 mmol/L (5.0-15.0); BILIRUBIN TOTAL 1.2 mg/dL (0.0-1.0); BUN/CREATININE RATIO 29.5 (6-25); CALCIUM 10.4 mg/dL (8.5-10.1); CARBON DIOXIDE,CO2 38.6 mmol/L (21.0-32.0); CREATININE 1.22 mg/dL (0.55-1.02)
[2022-09-17] MEDS: Apixaban 2.5 MG Tab PO SCH ×2 (10:53→19:00)
[2022-09-17 13:33] LABS: EST CRCL DRUG DOSING (CG) 27.63 mL/min
[2022-09-17] MEDS: Bumetanide 1 MG Tab PO SCH (16:36)
[2022-09-17] MEDS ORDERED: Haloperidol 1 MG Tab PO ONE (18:30)
[2022-09-17] MEDS: Rosuvastatin 20 MG Tab PO SCH (19:00)
[2022-09-17] MEDS ORDERED: cefTRIAXone 1 GM Vial ONE (23:17)
[2022-09-17] MEDS: cefTRIAXone 1 GM in Sodium Chloride 0.9% 50 ML IV SCH (23:28)
[2022-09-18] MEDS: Levothyroxine 100 MCG Tab PO SCH (07:24)
[2022-09-18] MEDS: Metoprolol Succinate 100 MG Tab.ER PO SCH (08:09)
[2022-09-18] MEDS: Apixaban 2.5 MG Tab PO SCH ×2 (08:09→19:29)
[2022-09-18] MEDS: Spironolactone 25 MG Tab PO SCH (08:10)
[2022-09-18 08:46] LABS: HEMATOCRIT 44.2 % (37.0-47.0); HEMOGLOBIN 13.8 g/dL (11.5-16.5); MEAN CORPUSCULAR HEMOGLOBIN 32.2 pg (27.0-32.0); MEAN CORPUSCULAR HGB CONC 31.2 g/dL (31.0-35.0); MEAN PLATELET VOLUME 10.3 fL (6.0-10.0); RED BLOOD CELL COUNT 4.29 M/uL (3.80-5.80); RED CELL DISTRIBUTION WIDTH 14.5 % (11.0-16.0); WHITE BLOOD CELL COUNT,WBC 7.3 K/uL (4.0-11.0)
[2022-09-18 09:05] LABS: ANION GAP 11.1 mmol/L (5.0-15.0); BUN/CREATININE RATIO 30.6 (6-25); CALCIUM 10.2 mg/dL (8.5-10.1); CARBON DIOXIDE,CO2 36.2 mmol/L (21.0-32.0); CREATININE 1.24 mg/dL (0.55-1.02); EST CRCL DRUG DOSING (CG) 27.19 mL/min; MAGNESIUM 2.2 mg/dL (1.8-2.4); PHOSPHORUS 4.7 mg/dL (2.5-4.9); POTASSIUM,K 4.3 mmol/L (3.5-5.1)
[2022-09-18] MEDS: Bumetanide 1 MG Tab PO SCH (09:45)
[2022-09-18] MEDS: Acetaminophen 650 MG Tab.ER PO PRN (12:29)
[2022-09-18] MEDS ORDERED: Nystatin Topical Powder 15 GM Bottle TOP SCH (12:30)
[2022-09-18] MEDS ORDERED: Ciprofloxacin in D5W 400 MG in Premix Bag 1 BAG IV SCH ×2 (13:30)
[2022-09-18] MEDS: Ciprofloxacin 500 MG Tab PO SCH ×2 (14:05→19:28)
[2022-09-18] MEDS ORDERED: Lactated Ringers 1,000 ML IV SCH ×2 (16:00→17:00)
[2022-09-18] MEDS: Rosuvastatin 20 MG Tab PO SCH (19:29)
[2022-09-18] MEDS: Nystatin Crm 30 GM Tube TOP SCH (19:35)
[2022-09-18] MEDS ORDERED: Haloperidol 1 MG Tab PO SCH (20:00)
[2022-09-18] MEDS: cefTRIAXone 1 GM in Sodium Chloride 0.9% 50 ML IV SCH (21:02)
[2022-09-18] MEDS ORDERED: LORazepam 2 MG/ML SDV ONE (22:06)
[2022-09-18] MEDS ORDERED: LORazepam 2 MG/ML SDV IVPUSH ONE (22:16)
[2022-09-18] MEDS: Albuterol/Ipratropium 3.0-0.5 MG/3 ML Neb Soln NEB SCH (23:29)
[2022-09-19] MEDS: Albuterol/Ipratropium 3.0-0.5 MG/3 ML Neb Soln NEB SCH ×4 (04:58→23:45)
[2022-09-19 09:20] LABS: HEMATOCRIT 38.5 % (37.0-47.0); HEMOGLOBIN 12.4 g/dL (11.5-16.5); MEAN CORPUSCULAR HGB CONC 32.2 g/dL (31.0-35.0); MEAN PLATELET VOLUME 10.2 fL (6.0-10.0); RED BLOOD CELL COUNT 3.76 M/uL (3.80-5.80); RED CELL DISTRIBUTION WIDTH 14.4 % (11.0-16.0); WHITE BLOOD CELL COUNT,WBC 6.1 K/uL (4.0-11.0)
[2022-09-19 09:46] LABS: A/G RATIO 0.8 (0.8-2.0); ALBUMIN 3.3 g/dL (3.4-5.0); ANION GAP 9.2 mmol/L (5.0-15.0); BUN/CREATININE RATIO 29.1 (6-25); CALCIUM 9.8 mg/dL (8.5-10.1); CARBON DIOXIDE,CO2 36.8 mmol/L (21.0-32.0); CREATININE 1.34 mg/dL (0.55-1.02); EST CRCL DRUG DOSING (CG) 25.16 mL/min; MAGNESIUM 2.2 mg/dL (1.8-2.4); PHOSPHORUS 4.2 mg/dL (2.5-4.9); PROTEIN TOTAL,TP 7.3 g/dL (6.4-8.2)
[2022-09-19] MEDS: Metoprolol Succinate 100 MG Tab.ER PO SCH (10:02)
[2022-09-19] MEDS: Apixaban 2.5 MG Tab PO SCH ×2 (10:03→19:21)
[2022-09-19] MEDS: Spironolactone 25 MG Tab PO SCH (10:03)
[2022-09-19] MEDS: Ciprofloxacin 500 MG Tab PO SCH (10:03)
[2022-09-19] MEDS: Bumetanide 1 MG Tab PO SCH (10:08)
[2022-09-19] MEDS: Levothyroxine 100 MCG Tab PO SCH (10:11)
[2022-09-19 10:21] LABS: BICARBONATE,ARTERIAL 32.5 mmol/L (22-26); PCO2 ARTERIAL 51.9 mmHg (35-45)
[2022-09-19 10:22] LABS: BASE EXCESS ARTERIAL 7.8 (-2-2)
[2022-09-19] MEDS ORDERED: Sodium Chloride 0.9% 1,000 ML IV SCH (11:00)
[2022-09-19] MEDS ORDERED: cefTRIAXone 1 GM in Sodium Chloride 0.9% 50 ML IV SCH (11:00)
[2022-09-19] MEDS: Nystatin Crm 30 GM Tube TOP SCH ×2 (15:53→19:22)
[2022-09-19] MEDS: Rosuvastatin 20 MG Tab PO SCH (19:21)
[2022-09-20] MEDS: Albuterol/Ipratropium 3.0-0.5 MG/3 ML Neb Soln NEB SCH ×5 (04:16→23:45)
[2022-09-20] MEDS: Bumetanide 1 MG Tab PO SCH (07:42)
[2022-09-20] MEDS: Apixaban 2.5 MG Tab PO SCH ×2 (07:43→19:34)
[2022-09-20] MEDS: Spironolactone 25 MG Tab PO SCH (07:44)
[2022-09-20] MEDS: Levothyroxine 100 MCG Tab PO SCH (07:44)
[2022-09-20] MEDS ORDERED: Ciprofloxacin 500 MG Tab PO SCH (08:00)
[2022-09-20 10:38] LABS: ANION GAP 11.6 mmol/L (5.0-15.0); BUN/CREATININE RATIO 26.4 (6-25); CALCIUM 9.4 mg/dL (8.5-10.1); CARBON DIOXIDE,CO2 35.6 mmol/L (21.0-32.0); CREATININE 1.29 mg/dL (0.55-1.02); EST CRCL DRUG DOSING (CG) 26.13 mL/min; POTASSIUM,K 4.2 mmol/L (3.5-5.1)
[2022-09-20] MEDS: Nystatin Crm 30 GM Tube TOP SCH ×2 (11:11→19:33)
[2022-09-20] MEDS: Metoprolol Succinate 100 MG Tab.ER PO SCH (11:43)
[2022-09-20] MEDS ORDERED: Nitrofurantoin Macrocrystal 50 MG Cap ONE (19:13)
[2022-09-20] MEDS: Rosuvastatin 20 MG Tab PO SCH (19:31)
[2022-09-20] MEDS ORDERED: Nitrofurantoin Monohydrate/Macrocrystalline 100 MG Cap PO SCH (20:00)
[2022-09-21] MEDS: Albuterol/Ipratropium 3.0-0.5 MG/3 ML Neb Soln NEB SCH ×5 (00:04→22:40)
[2022-09-21] MEDS: Apixaban 2.5 MG Tab PO SCH ×2 (07:50→19:05)
[2022-09-21] MEDS: Bumetanide 1 MG Tab PO SCH (07:50)
[2022-09-21] MEDS: Levothyroxine 100 MCG Tab PO SCH (07:51)
[2022-09-21] MEDS: Metoprolol Succinate 100 MG Tab.ER PO SCH (07:52)
[2022-09-21] MEDS: Acetaminophen 650 MG Tab.ER PO PRN ×2 (07:53→19:10)
[2022-09-21] MEDS: Spironolactone 25 MG Tab PO SCH (07:54)
[2022-09-21] MEDS: Nystatin Crm 30 GM Tube TOP SCH ×2 (07:56→19:06)
[2022-09-21 10:39] LABS: ANION GAP 9.2 mmol/L (5.0-15.0); CALCIUM 9.7 mg/dL (8.5-10.1); CARBON DIOXIDE,CO2 36.8 mmol/L (21.0-32.0); CREATININE 1.11 mg/dL (0.55-1.02); EST CRCL DRUG DOSING (CG) 30.37 mL/min
[2022-09-21] MEDS: Rosuvastatin 20 MG Tab PO SCH (19:05)
[2022-09-21] MEDS ORDERED: Nitrofurantoin Macrocrystal 50 MG Cap PO SCH (20:00)
[2022-09-22] MEDS: Albuterol/Ipratropium 3.0-0.5 MG/3 ML Neb Soln NEB SCH ×2 (05:12→13:09)
[2022-09-22] MEDS: Bumetanide 1 MG Tab PO SCH (07:31)
[2022-09-22] MEDS: Levothyroxine 100 MCG Tab PO SCH (07:31)
[2022-09-22] MEDS: Spironolactone 25 MG Tab PO SCH (07:32)
[2022-09-22] MEDS: Metoprolol Succinate 100 MG Tab.ER PO SCH (07:32)
[2022-09-22] MEDS: Apixaban 2.5 MG Tab PO SCH (07:32)
[2022-09-22] MEDS: Nystatin Crm 30 GM Tube TOP SCH (07:33)
[2022-09-22] MEDS: Acetaminophen 650 MG Tab.ER PO PRN (07:38)
== END 2022-09-22 16:20 | disposition swing bed (61) | DRG 291 ==
LOC: LB.ED 14:10 → LB.MS 16:24
PROVIDERS: ADMIT Physician Assistant; ATTEND Physician Assistant
PROC: 5A09357 Assistance with Respiratory Ventilation, Less than 24 Consecutive Hours, Continuous Positive Airway Pressure (ICD-10-PCS; principal; 2022-09-15)
DX: I13.0 Hypertensive heart and chronic kidney disease with heart failure and stage 1 through stage 4 chronic kidney disease, or unspecified chronic kidney disease (principal); J15.3 Pneumonia due to streptococcus, group B; N39.0 Urinary tract infection, site not specified; N30.01 Acute cystitis with hematuria; I82.402 Acute embolism and thrombosis of unspecified deep veins of left lower extremity; J90 Pleural effusion, not elsewhere classified; J44.0 Chronic obstructive pulmonary disease with (acute) lower respiratory infection; I50.9 Heart failure, unspecified; I11.0 Hypertensive heart disease with heart failure; Z87.891 Personal history of nicotine dependence; Z99.81 Dependence on supplemental oxygen; E86.0 Dehydration; Z68.30 Body mass index [BMI] 30.0-30.9, adult; R44.1 Visual hallucinations; N18.31 Chronic kidney disease, stage 3a; R41.0 Disorientation, unspecified; E66.01 Morbid (severe) obesity due to excess calories; G47.33 Obstructive sleep apnea (adult) (pediatric); R09.02 Hypoxemia; I48.91 Unspecified atrial fibrillation; I10 Essential (primary) hypertension; E03.9 Hypothyroidism, unspecified; E66.9 Obesity, unspecified; Z79.01 Long term (current) use of anticoagulants; Z79.899 Other long term (current) drug therapy; Z86.718 Personal history of other venous thrombosis and embolism
CPT/HCPCS: 36415; 36600; 51702; 70450; 71045; 80048; 80053; 81001; 82140; 82803; 82947; 83605; 83735; 83880; 84100; 84443; 84484; 85025; 85027; 87086; 93005; 94640; 94660; 97162-GP; 97165-GO; 97530-GP; 99223; 99233; 99238; 99285; A9270-GY; J0696; J1630; J2060; J3490; J7030; J7620

== ENCOUNTER 2022-09-22 13:25 | Inpatient (IN) | payer MEDICARE, OTHER ==
[2022-09-22] MEDS ORDERED: Polyethylene Glycol 3350 Powder 510 GM Bot PO PRN (17:47)
[2022-09-22] MEDS ORDERED: Tuberculin, PPD 5 Units/0.1 ML 1 ML MDV IDERM ONE (20:00)
[2022-09-22] MEDS: Rosuvastatin 20 MG Tab PO SCH (20:05)
[2022-09-22] MEDS: Apixaban 2.5 MG Tab PO SCH (20:05)
[2022-09-22] MEDS: Nitrofurantoin Macrocrystal 50 MG Cap PO SCH (20:05)
[2022-09-22] MEDS: Albuterol/Ipratropium 3.0-0.5 MG/3 ML Neb Soln NEB SCH (20:07)
[2022-09-22] MEDS: Nystatin Crm 30 GM Tube TOP SCH (20:07)
[2022-09-22] MEDS: Acetaminophen 650 MG Tab.ER PO PRN (20:09)
[2022-09-23] MEDS: Albuterol/Ipratropium 3.0-0.5 MG/3 ML Neb Soln NEB SCH ×4 (02:55→20:05)
[2022-09-23] MEDS: Bumetanide 1 MG Tab PO SCH (07:44)
[2022-09-23] MEDS: Levothyroxine 100 MCG Tab PO SCH (07:45)
[2022-09-23] MEDS: Spironolactone 25 MG Tab PO SCH (07:45)
[2022-09-23] MEDS: Apixaban 2.5 MG Tab PO SCH ×2 (07:45→20:04)
[2022-09-23] MEDS: Nystatin Crm 30 GM Tube TOP SCH ×2 (07:46→20:04)
[2022-09-23] MEDS: Metoprolol Succinate 100 MG Tab.ER PO SCH (07:53)
[2022-09-23] MEDS: Acetaminophen 650 MG Tab.ER PO PRN ×2 (08:39→20:04)
[2022-09-23] MEDS: Rosuvastatin 20 MG Tab PO SCH (20:03)
[2022-09-23] MEDS: Nitrofurantoin Macrocrystal 50 MG Cap PO SCH (20:04)
[2022-09-24] MEDS: Albuterol/Ipratropium 3.0-0.5 MG/3 ML Neb Soln NEB SCH ×4 (02:52→21:26)
[2022-09-24] MEDS: Metoprolol Succinate 100 MG Tab.ER PO SCH (08:24)
[2022-09-24] MEDS: Bumetanide 1 MG Tab PO SCH (08:24)
[2022-09-24] MEDS: Nystatin Crm 30 GM Tube TOP SCH ×2 (08:25→19:35)
[2022-09-24] MEDS: Apixaban 2.5 MG Tab PO SCH ×2 (08:25→19:34)
[2022-09-24] MEDS: Spironolactone 25 MG Tab PO SCH (08:25)
[2022-09-24] MEDS: Levothyroxine 100 MCG Tab PO SCH (08:25)
[2022-09-24] MEDS: Acetaminophen 650 MG Tab.ER PO PRN ×2 (09:25→19:37)
[2022-09-24] MEDS: Rosuvastatin 20 MG Tab PO SCH (19:35)
[2022-09-24] MEDS: Nitrofurantoin Macrocrystal 50 MG Cap PO SCH (19:35)
[2022-09-25] MEDS: Albuterol/Ipratropium 3.0-0.5 MG/3 ML Neb Soln NEB SCH ×4 (03:31→20:37)
[2022-09-25] MEDS: Spironolactone 25 MG Tab PO SCH (07:53)
[2022-09-25] MEDS: Bumetanide 1 MG Tab PO SCH (07:53)
[2022-09-25] MEDS: Levothyroxine 100 MCG Tab PO SCH (07:53)
[2022-09-25] MEDS: Apixaban 2.5 MG Tab PO SCH ×2 (07:54→19:47)
[2022-09-25] MEDS: Nystatin Crm 30 GM Tube TOP SCH ×2 (07:54→19:48)
[2022-09-25] MEDS: Metoprolol Succinate 100 MG Tab.ER PO SCH (07:54)
[2022-09-25] MEDS: Acetaminophen 650 MG Tab.ER PO PRN ×2 (07:55→19:48)
[2022-09-25] MEDS: Nitrofurantoin Macrocrystal 50 MG Cap PO SCH (19:47)
[2022-09-25] MEDS: Rosuvastatin 20 MG Tab PO SCH (19:48)
[2022-09-26] MEDS: Albuterol/Ipratropium 3.0-0.5 MG/3 ML Neb Soln NEB SCH ×4 (03:29→20:03)
[2022-09-26] MEDS: Levothyroxine 100 MCG Tab PO SCH (07:59)
[2022-09-26] MEDS: Metoprolol Succinate 100 MG Tab.ER PO SCH (07:59)
[2022-09-26] MEDS: Nystatin Crm 30 GM Tube TOP SCH ×2 (08:00→19:56)
[2022-09-26] MEDS: Spironolactone 25 MG Tab PO SCH (08:00)
[2022-09-26] MEDS: Bumetanide 1 MG Tab PO SCH (08:00)
[2022-09-26] MEDS: Apixaban 2.5 MG Tab PO SCH ×2 (08:00→19:57)
[2022-09-26] MEDS: Acetaminophen 650 MG Tab.ER PO PRN ×2 (08:03→20:01)
[2022-09-26] MEDS: Rosuvastatin 20 MG Tab PO SCH (19:55)
[2022-09-26] MEDS: Nitrofurantoin Macrocrystal 50 MG Cap PO SCH (19:56)
[2022-09-27] MEDS: Albuterol/Ipratropium 3.0-0.5 MG/3 ML Neb Soln NEB SCH ×4 (06:12→20:27)
[2022-09-27] MEDS: Levothyroxine 100 MCG Tab PO SCH (07:55)
[2022-09-27] MEDS: Apixaban 2.5 MG Tab PO SCH ×2 (07:56→19:21)
[2022-09-27] MEDS: Bumetanide 1 MG Tab PO SCH (07:56)
[2022-09-27] MEDS: Metoprolol Succinate 100 MG Tab.ER PO SCH (07:56)
[2022-09-27] MEDS: Nystatin Crm 30 GM Tube TOP SCH ×2 (07:57→19:21)
[2022-09-27] MEDS: Acetaminophen 650 MG Tab.ER PO PRN ×2 (08:00→19:19)
[2022-09-27] MEDS: Spironolactone 25 MG Tab PO SCH (08:00)
[2022-09-27] MEDS: Rosuvastatin 20 MG Tab PO SCH (19:18)
[2022-09-28] MEDS: Acetaminophen 650 MG Tab.ER PO PRN (02:22)
[2022-09-28] MEDS: Albuterol/Ipratropium 3.0-0.5 MG/3 ML Neb Soln NEB SCH ×4 (02:23→20:12)
[2022-09-28] MEDS: Apixaban 2.5 MG Tab PO SCH ×2 (07:40→20:09)
[2022-09-28] MEDS: Levothyroxine 100 MCG Tab PO SCH (07:41)
[2022-09-28] MEDS: Bumetanide 1 MG Tab PO SCH (07:41)
[2022-09-28] MEDS: Metoprolol Succinate 100 MG Tab.ER PO SCH (07:41)
[2022-09-28] MEDS: Spironolactone 25 MG Tab PO SCH (07:42)
[2022-09-28] MEDS: Nystatin Crm 30 GM Tube TOP SCH ×2 (07:43→20:09)
[2022-09-28] MEDS: Rosuvastatin 20 MG Tab PO SCH (20:10)
[2022-09-29] MEDS: Albuterol/Ipratropium 3.0-0.5 MG/3 ML Neb Soln NEB SCH ×4 (05:43→20:38)
[2022-09-29] MEDS: Levothyroxine 100 MCG Tab PO SCH (08:04)
[2022-09-29] MEDS: Apixaban 2.5 MG Tab PO SCH ×2 (08:05→20:37)
[2022-09-29] MEDS: Bumetanide 1 MG Tab PO SCH (08:05)
[2022-09-29] MEDS: Spironolactone 25 MG Tab PO SCH (08:05)
[2022-09-29] MEDS: Nystatin Crm 30 GM Tube TOP SCH ×2 (08:05→20:37)
[2022-09-29] MEDS: Metoprolol Succinate 100 MG Tab.ER PO SCH (08:05)
[2022-09-29] MEDS: Acetaminophen 650 MG Tab.ER PO PRN (08:10)
[2022-09-29] MEDS: Rosuvastatin 20 MG Tab PO SCH (20:37)
[2022-09-30] MEDS: Albuterol/Ipratropium 3.0-0.5 MG/3 ML Neb Soln NEB SCH ×4 (05:29→20:02)
[2022-09-30] MEDS: Levothyroxine 100 MCG Tab PO SCH (08:24)
[2022-09-30] MEDS: Acetaminophen 650 MG Tab.ER PO PRN ×2 (08:25→22:15)
[2022-09-30] MEDS: Bumetanide 1 MG Tab PO SCH (08:25)
[2022-09-30] MEDS: Metoprolol Succinate 100 MG Tab.ER PO SCH (08:26)
[2022-09-30] MEDS: Spironolactone 25 MG Tab PO SCH (08:27)
[2022-09-30] MEDS: Apixaban 2.5 MG Tab PO SCH ×2 (08:27→20:02)
[2022-09-30] MEDS: Nystatin Crm 30 GM Tube TOP SCH ×2 (08:28→20:02)
[2022-09-30] MEDS: Rosuvastatin 20 MG Tab PO SCH (20:02)
[2022-10-01] MEDS: Albuterol/Ipratropium 3.0-0.5 MG/3 ML Neb Soln NEB SCH ×4 (03:05→20:26)
[2022-10-01] MEDS: Levothyroxine 100 MCG Tab PO SCH (07:19)
[2022-10-01] MEDS: Nystatin Crm 30 GM Tube TOP SCH ×2 (07:19→20:26)
[2022-10-01] MEDS: Spironolactone 25 MG Tab PO SCH (07:20)
[2022-10-01] MEDS: Metoprolol Succinate 100 MG Tab.ER PO SCH (07:20)
[2022-10-01] MEDS: Bumetanide 1 MG Tab PO SCH (07:21)
[2022-10-01] MEDS: Apixaban 2.5 MG Tab PO SCH ×2 (07:21→20:25)
[2022-10-01] MEDS: Acetaminophen 650 MG Tab.ER PO PRN ×2 (10:28→20:26)
[2022-10-01] MEDS: Rosuvastatin 20 MG Tab PO SCH (20:25)
[2022-10-02] MEDS: Albuterol/Ipratropium 3.0-0.5 MG/3 ML Neb Soln NEB SCH ×4 (06:18→20:57)
[2022-10-02] MEDS: Spironolactone 25 MG Tab PO SCH (07:37)
[2022-10-02] MEDS: Bumetanide 1 MG Tab PO SCH (07:38)
[2022-10-02] MEDS: Apixaban 2.5 MG Tab PO SCH ×2 (07:38→20:56)
[2022-10-02] MEDS: Metoprolol Succinate 100 MG Tab.ER PO SCH (07:38)
[2022-10-02] MEDS: Levothyroxine 100 MCG Tab PO SCH (07:38)
[2022-10-02] MEDS: Nystatin Crm 30 GM Tube TOP SCH ×2 (07:39→20:57)
[2022-10-02] MEDS: Acetaminophen 650 MG Tab.ER PO PRN ×2 (09:13→20:56)
[2022-10-02] MEDS: Rosuvastatin 20 MG Tab PO SCH (20:56)
[2022-10-03] MEDS: Albuterol/Ipratropium 3.0-0.5 MG/3 ML Neb Soln NEB SCH ×2 (03:30→10:37)
[2022-10-03] MEDS: Apixaban 2.5 MG Tab PO SCH (07:35)
[2022-10-03] MEDS: Spironolactone 25 MG Tab PO SCH (07:35)
[2022-10-03] MEDS: Metoprolol Succinate 100 MG Tab.ER PO SCH (07:35)
[2022-10-03] MEDS: Levothyroxine 100 MCG Tab PO SCH (07:35)
[2022-10-03] MEDS: Nystatin Crm 30 GM Tube TOP SCH (07:35)
[2022-10-03] MEDS: Bumetanide 1 MG Tab PO SCH (07:35)
[2022-10-03 09:46] LABS: CORONAVIRUS COVID-19 NAA NEGATIVE (NEGATIVE)
[2022-10-03] MEDS: Acetaminophen 650 MG Tab.ER PO PRN (10:15)
[2022-10-03 10:18] VITALS: BP 101/60; PULSE 66
== END 2022-10-03 11:10 | DRG 948 ==
LOC: LB.MS 16:15
PROVIDERS: ADMIT Physician Assistant; ATTEND Physician Assistant
DX: R53.81 Other malaise (principal); I13.0 Hypertensive heart and chronic kidney disease with heart failure and stage 1 through stage 4 chronic kidney disease, or unspecified chronic kidney disease; N39.0 Urinary tract infection, site not specified; Z68.44 Body mass index [BMI] 60.0-69.9, adult; I50.9 Heart failure, unspecified; N18.30 Chronic kidney disease, stage 3 unspecified; I48.91 Unspecified atrial fibrillation; E03.9 Hypothyroidism, unspecified; E66.01 Morbid (severe) obesity due to excess calories; Z20.822 Contact with and (suspected) exposure to COVID-19; D63.1 Anemia in chronic kidney disease; G47.33 Obstructive sleep apnea (adult) (pediatric); J44.9 Chronic obstructive pulmonary disease, unspecified; K21.9 Gastro-esophageal reflux disease without esophagitis; G43.909 Migraine, unspecified, not intractable, without status migrainosus; M19.90 Unspecified osteoarthritis, unspecified site; E78.00 Pure hypercholesterolemia, unspecified; Z96.659 Presence of unspecified artificial knee joint; Z96.619 Presence of unspecified artificial shoulder joint; Z87.01 Personal history of pneumonia (recurrent); Z86.718 Personal history of other venous thrombosis and embolism; Z88.8 Allergy status to other drugs, medicaments and biological substances; Z79.899 Other long term (current) drug therapy; Z79.01 Long term (current) use of anticoagulants; Z87.440 Personal history of urinary (tract) infections; Z99.81 Dependence on supplemental oxygen
CPT/HCPCS: 86580; 94640; 97530-GO; 97530-GP; 97535-GO; 99305; 99309; 99315; A9270-GY; J7620; U0002

== ENCOUNTER 2022-11-10 08:49 | Emergency (ER) | payer MEDICARE, OTHER ==
[2022-11-10 09:20] VITALS: BP 133/72; PULSE 76
[2022-11-11 09:06] LABS: APPEARANCE,URINE CLEAR (CLEAR); BILIRUBIN,URINE NEGATIVE (NEGATIVE); COLOR,URINE YELLOW; GLUCOSE,URINE NEGATIVE (NEGATIVE); KETONES,URINE NEGATIVE (NEGATIVE); LEUKOCYTE ESTERASE,URINE NEGATIVE (NEGATIVE); NITRITE,URINE NEGATIVE (NEGATIVE); OCCULT BLOOD,URINE NEGATIVE (NEGATIVE); PH,URINE 5.5 (5.0-8.0); PROTEIN,URINE NEGATIVE (NEGATIVE); UROBILINOGEN,URINE 0.2 E.U./dL (0.2-1.0)
== END 2022-11-10 09:50 | disposition home or self-care (01) ==
LOC: LB.ED 08:49
DX: S83.91XA Sprain of unspecified site of right knee, initial encounter (principal); I10 Essential (primary) hypertension; E03.9 Hypothyroidism, unspecified; Z88.6 Allergy status to analgesic agent; Z79.899 Other long term (current) drug therapy; Z79.01 Long term (current) use of anticoagulants; X50.1XXA Overexertion from prolonged static or awkward postures, initial encounter
CPT/HCPCS: 73560-RT; 81003; 99283

== ENCOUNTER 2023-01-16 20:27 | Emergency (ER) | payer MEDICARE, OTHER ==
[2023-01-16 21:25] LABS: APPEARANCE,URINE CLOUDY (CLEAR); BILIRUBIN,URINE NEGATIVE (NEGATIVE); COLOR,URINE YELLOW; GLUCOSE,URINE NEGATIVE (NEGATIVE); KETONES,URINE NEGATIVE (NEGATIVE); LEUKOCYTE ESTERASE,URINE MODERATE (NEGATIVE); NITRITE,URINE NEGATIVE (NEGATIVE); OCCULT BLOOD,URINE SMALL (NEGATIVE); PROTEIN,URINE NEGATIVE (NEGATIVE); UROBILINOGEN,URINE 0.2 E.U./dL (0.2-1.0)
[2023-01-16 21:28] LABS: SQUAMOUS EPITHELIAL CELLS,UR FEW /HPF; WBC,URINE SEMI-PACKED /HPF
== END 2023-01-16 21:45 | disposition home or self-care (01) ==
LOC: LB.ED 20:27
DX: R06.02 Shortness of breath (principal); Z99.81 Dependence on supplemental oxygen; K21.9 Gastro-esophageal reflux disease without esophagitis; E03.9 Hypothyroidism, unspecified; E66.9 Obesity, unspecified; Z88.5 Allergy status to narcotic agent; Z79.899 Other long term (current) drug therapy; Z68.44 Body mass index [BMI] 60.0-69.9, adult
CPT/HCPCS: 81001; 87086; 99283; 99284

== ENCOUNTER 2023-01-29 12:02 | Emergency (ER) | payer MEDICARE, OTHER ==
[2023-01-29 16:34] VITALS: BP 128/68; PULSE 99
== END 2023-01-29 14:20 ==
LOC: LB.ED 12:02
DX: M25.561 Pain in right knee (principal); I50.9 Heart failure, unspecified; J44.9 Chronic obstructive pulmonary disease, unspecified; E66.9 Obesity, unspecified; Z68.44 Body mass index [BMI] 60.0-69.9, adult; Z87.891 Personal history of nicotine dependence; Z88.6 Allergy status to analgesic agent; E03.9 Hypothyroidism, unspecified; Z79.899 Other long term (current) drug therapy; Z79.01 Long term (current) use of anticoagulants; X50.1XXA Overexertion from prolonged static or awkward postures, initial encounter
CPT/HCPCS: 73560-RT; 99284